=== PATIENT | male | born 1965 | race Hispanic/Latino ===

== ENCOUNTER 2020-02-15 17:52 | Inpatient (IN) | payer MEDICAID ==
[~2020-02-15] VITALS: Ht 160 cm; Wt 47.2 kg
[2020-02-15] MEDS ORDERED: ASPIRIN 325 MG TABLET ONE (18:20)
[2020-02-15 18:22] LABS: BASOPHILS % (AUTO) 1.7 % (0.0-5.0); EOSINOPHILS % (AUTO) 3.8 % (0.0-8.0); HEMATOCRIT 26.7 % (42-54); LYMPHOCYTES % (AUTO) 37.3 % (21.0-51.0); MEAN CORPUSCULAR HEMOGLOBIN 18.2 pg (27.0-33.0); MEAN CORPUSCULAR HGB CONC 27.7 g/dL (32.0-36.0); MEAN CORPUSCULAR VOLUME 65.8 fL (79-99); MONOCYTES % (AUTO) 11.8 % (3.0-13.0); NEUTROPHILS % (AUTO) 44.7 % (40.0-77.0); PLATELET COUNT (AUTO) 160 K/uL (130-400); RED BLOOD CELL COUNT(AUTO) 4.06 MIL/uL (4.50-6.20); RED CELL DISTRIBUTION WIDTH 21.6 % (11.0-15.5); WHITE BLOOD COUNT (AUTO) 7.5 K/uL (4.8-10.8)
[2020-02-15 18:37] LABS: INR 0.92 (0.85-1.15); PARTIAL THROMBOPLASTIN TIME 28.1 SEC (26.3-35.5)
[2020-02-15 18:39] LABS: ALBUMIN 4.1 g/dL (3.5-5.0); BILIRUBIN,TOTAL 0.4 mg/dL (0.2-1.0); CREATININE 0.4 mg/dL (0.5-1.5); TOTAL PROTEIN, SERUM 8.9 g/dL (6.0-8.3)
[2020-02-15] MEDS ORDERED: POTASSIUM CHLORIDE 20 MEQ ERTAB PO ONE (18:57)
[2020-02-15] MEDS ORDERED: MORPHINE SULFATE 2 MG/ML 1ML SYG ONE (20:20)
[2020-02-15] MEDS ORDERED: MORPHINE SULFATE 2 MG/ML 1ML SYG IVP PRN (22:15)
[2020-02-15] MEDS ORDERED: ONDANSETRON HCL 4 MG/2 ML VIAL IV PRN (22:15)
[2020-02-15] MEDS ORDERED: NITROGLYCERIN 0.4 MG SL TAB SL PRN (22:15)
[2020-02-15] MEDS ORDERED: LACTATED RINGERS 1000ML 1,000 ML IV SCH (22:30)
[2020-02-16] VITALS (7 sets, daily range): BP systolic 124–149; BP diastolic 72–81
--- NOTE | 2020-02-16 00:05 | NUR ---
ADMISSION PATIENT ADMITTED INTO ROOM 317 FROM ER, AWAKE, ALERT AND VERBALLY RESPONSIVE. NO C/O CHEST PAIN OR ANY DISTRESS AT THIS TIME. PATIENT ORIENTED TO ROOM, CALL BARRY WITHIN REACH, BED IN LOWEST POSITION, UPDATED ON P.O.C. Addendum: 02/16/20 at 0038 by HAYDER GREGORIO RN Amended: Links added.
[2020-02-16 00:49] LABS: HEMATOCRIT 26.3 % (42-54)
[2020-02-16] MEDS ORDERED: ASPI-556 PO (00:50)
[2020-02-16] MEDS: POTASSIUM CHLORIDE 20MEQ/100ML 100 ML IV PRN ×2 (01:20→10:53)
[2020-02-16] MEDS: LIDOCAINE HCL-MPF 1% 2ML VIAL IV PRN ×2 (01:20→10:53)
[2020-02-16 08:02] LABS: BASOPHILS % (AUTO) 1.1 % (0.0-5.0); EOSINOPHILS % (AUTO) 0.4 % (0.0-8.0); LYMPHOCYTES % (AUTO) 8.5 % (21.0-51.0); MEAN CORPUSCULAR HEMOGLOBIN 18.8 pg (27.0-33.0); MEAN CORPUSCULAR HGB CONC 27.4 g/dL (32.0-36.0); MEAN CORPUSCULAR VOLUME 68.7 fL (79-99); MONOCYTES % (AUTO) 11.3 % (3.0-13.0); PLATELET COUNT (AUTO) 147 K/uL (130-400); RED BLOOD CELL COUNT(AUTO) 3.93 MIL/uL (4.50-6.20); RED CELL DISTRIBUTION WIDTH 21.6 % (11.0-15.5)
[2020-02-16 08:28] LABS: ALANINE AMINOTRANSFERASE 42 U/L (12-78); TROPONIN I < 0.04 ng/mL (0.00-0.06)
[2020-02-16 08:31] LABS: ALBUMIN 3.9 g/dL (3.5-5.0); ASPARTATE AMINOTRANSFERASE 62 U/L (10-37); BILIRUBIN,DIRECT 0.1 mg/dL (0.0-0.3); BILIRUBIN,TOTAL 0.3 mg/dL (0.2-1.0); CHOLESTEROL 139 mg/dL (<200); CREATINE KINASE, TOTAL 64 U/L (21-232); HDL CHOLESTEROL 94 mg/dL (29-71); LDL DIRECT 38 mg/dL (0-99); MYOGLOBIN 16 ng/mL (10-92); THYROID STIMULATING HORMONE 5.67 uIU/mL (0.36-3.74); TOTAL PROTEIN, SERUM 8.5 g/dL (6.0-8.3); TRIGLYCERIDES 27 mg/dL (30-200)
[2020-02-16] MEDS ORDERED: PANTOPRAZOLE 40 MG/VIAL IVP SCH (09:00)
[2020-02-16] MEDS: MAGNESIUM 2GM PREMIX 50ML 50 ML IV PRN (09:31)
[2020-02-16] MEDS ORDERED: PHARMACY COMMUNICATION MISC PRN (11:00)
[2020-02-16] MEDS ORDERED: CHLORDIAZEPOXIDE HCL 25 MG CAP PO PRN (11:00)
[2020-02-16 13:00] LABS: % IRON SATURATION 7.3 % (30-44)
[2020-02-16] MEDS: THIAMINE HCL 100 MG, FOLIC ACID 1 MG, M.V.I. IV [ADULT] 10 ML in SODIUM CHLORIDE 0.9% 1... IV SCH (13:30)
--- NOTE | 2020-02-16 14:48 | NUR ---
MET W PATIENT FOR DC PLANNING PATIENT LIVES ALONE, INDPENDENT IN ADLS, USES A CANE AT TIMES DUE TO WEAKNESS, HAS NO OTHER DME INCLUDING NO SHOWER CHAIR/BENCH- NO STAIRS AT HOME, HOME SAFE AND ACCESSIBLE; HAS PROVIDER SERVICES 21 HRS/WEEK BY A COUSIN WHO ALSO CAN PROVIDE TRANSPORT. HAS BEEN DISABLED X 8 YEARS SECOND TO SEIZURES, FINALLY GOT MEDICAID/ [employer] BENEFITS-- ADMITS THAT HE KNOWS THAT THIS HOSPITAL IS OUT OF NETWORK WITH HIS INSURANCE. DCP IS HOME, CM TO FOLLOW Addendum: 02/16/20 at 1455 by ZENA SCHULTZ RN CM Amended: Links added.
[2020-02-16] MEDS ORDERED: LACTULOSE 20 GM/30 ML UDCUP PO PRN (17:30)
[2020-02-16 18:42] LABS: RETICULOCYTE % (AUTO) 1.53 % (0.42-2.23)
[2020-02-16 18:43] LABS: HEMATOCRIT 27.8 % (42-54)
[2020-02-16 21:49] LABS: ALANINE AMINOTRANSFERASE 34 U/L (12-78); ASPARTATE AMINOTRANSFERASE 54 U/L (10-37); BILIRUBIN,DIRECT 0.3 mg/dL (0.0-0.3); BILIRUBIN,TOTAL 0.7 mg/dL (0.2-1.0); LACTATE DEHYDROGENASE 132 U/L (81-234); TOTAL PROTEIN, SERUM 8.7 g/dL (6.0-8.3)
[2020-02-16] MEDS: LACTULOSE 20 GM/30 ML UDCUP PO SCH (21:58)
[2020-02-16] MEDS ORDERED: POTASSIUM CHLORIDE 20 MEQ ERTAB PO ONE (23:18)
[2020-02-16] MEDS ORDERED: ENOXAPARIN SODIUM 30 MG/0.3 ML SQ ONE (23:19)
[2020-02-17] MEDS: POTASSIUM CHLORIDE 20 MEQ ERTAB PO PRN (01:14)
[2020-02-17 03:44] VITALS: BP 135/80
[2020-02-17 06:23] LABS: BASOPHILS % (AUTO) 1.4 % (0.0-5.0); EOSINOPHILS % (AUTO) 1.9 % (0.0-8.0); HEMATOCRIT 25.8 % (42-54); LYMPHOCYTES % (AUTO) 19.2 % (21.0-51.0); MEAN CORPUSCULAR HEMOGLOBIN 18.7 pg (27.0-33.0); MEAN CORPUSCULAR HGB CONC 27.1 g/dL (32.0-36.0); MEAN CORPUSCULAR VOLUME 68.8 fL (79-99); MONOCYTES % (AUTO) 12.6 % (3.0-13.0); NEUTROPHILS % (AUTO) 64.6 % (40.0-77.0); PLATELET COUNT (AUTO) 140 K/uL (130-400); RED BLOOD CELL COUNT(AUTO) 3.75 MIL/uL (4.50-6.20); RED CELL DISTRIBUTION WIDTH 21.9 % (11.0-15.5); WHITE BLOOD COUNT (AUTO) 7.2 K/uL (4.8-10.8)
[2020-02-17 07:58] VITALS: BP 120/71
[2020-02-17] MEDS ORDERED: PANTOPRAZOLE 40 MG/VIAL IVP SCH (09:00)
[2020-02-17] MEDS ORDERED: ENOXAPARIN SODIUM 30 MG/0.3 ML SQ SCH (09:00)
[2020-02-17] MEDS ORDERED: ACETAMINOPHEN 325 MG TAB ONE (10:20)
[2020-02-17] MEDS: PANTOPRAZOLE SODIUM 40 MG TABLET.DR PO SCH ×2 (10:27→17:31)
[2020-02-17] MEDS: LACTULOSE 20 GM/30 ML UDCUP PO SCH ×2 (10:28→20:09)
[2020-02-17] MEDS ORDERED: ACETAMINOPHEN 325 MG TAB PO SCH (10:30)
[2020-02-17 12:00] VITALS: BP 128/68
[2020-02-17] MEDS ORDERED: COMPOUND IV MISC 1 EACH IVSOLN MISC PRN (12:30)
[2020-02-17] MEDS: THIAMINE HCL 100 MG, FOLIC ACID 1 MG, M.V.I. IV [ADULT] 10 ML in SODIUM CHLORIDE 0.9% 1... IV SCH (13:35)
[2020-02-17 16:00] VITALS: BP 135/72
[2020-02-17] MEDS ORDERED: SODIUM CHLORIDE 3% FOR INHALATION 4 ML/AMP VIAL.NEB IH ONE (18:09)
[2020-02-17 20:08] VITALS: BP 147/71
[2020-02-17] MEDS: IRON SUCROSE COMPLEX 100 MG in SODIUM CHLORIDE 0.9% 50 ML IV SCH (20:09)
[2020-02-18 00:08] VITALS: BP 146/76
[2020-02-18 04:32] VITALS: BP 144/77
[2020-02-18] MEDS: PANTOPRAZOLE SODIUM 40 MG TABLET.DR PO SCH ×2 (05:13→17:08)
[2020-02-18 06:03] LABS: HEMATOCRIT 28.6 % (42-54); MEAN CORPUSCULAR HEMOGLOBIN 20.3 pg (27.0-33.0); MEAN CORPUSCULAR HGB CONC 28.3 g/dL (32.0-36.0); MEAN CORPUSCULAR VOLUME 71.7 fL (79-99); PLATELET COUNT (AUTO) 138 K/uL (130-400); RED BLOOD CELL COUNT(AUTO) 3.99 MIL/uL (4.50-6.20); RED CELL DISTRIBUTION WIDTH 22.1 % (11.0-15.5); WHITE BLOOD COUNT (AUTO) 6.7 K/uL (4.8-10.8)
[2020-02-18] MEDS ORDERED: SODIUM CHLORIDE 3% FOR INHALATION 4 ML/AMP VIAL.NEB IH ONE ×3 (06:14→18:37)
[2020-02-18 06:31] LABS: ALBUMIN 3.3 g/dL (3.5-5.0); BILIRUBIN,TOTAL 0.7 mg/dL (0.2-1.0); CREATININE 0.4 mg/dL (0.5-1.5); MAGNESIUM 1.5 mg/dL (1.80-2.40); POTASSIUM 3.3 mmol/L (3.5-5.1); TOTAL PROTEIN, SERUM 7.5 g/dL (6.0-8.3)
[2020-02-18] MEDS: LIDOCAINE HCL-MPF 1% 2ML VIAL IV PRN ×2 (07:15→11:28)
[2020-02-18] MEDS: POTASSIUM CHLORIDE 20MEQ/100ML 100 ML IV PRN ×2 (07:15→11:28)
[2020-02-18 07:29] LABS: BASOPHILS % (MANUAL) 1 % (0-2); EOSINOPHILS % (MANUAL) 3 % (1-6); LYMPHOCYTES % (MANUAL) 19 % (22-44); MAN.DIFF COMMENT-IMPRESSION MANUAL DIFFERENTIAL; MONOCYTES % (MANUAL) 6 % (2-9); SEGMENTED NEUTROPHILS % 71 % (40-70)
[2020-02-18 07:30] LABS: PLATELET MORPHOLOGY COMMENT ADEQUATE
[2020-02-18 08:46] VITALS: BP 142/74
[2020-02-18] MEDS: LACTULOSE 20 GM/30 ML UDCUP PO SCH ×3 (09:09→21:41)
[2020-02-18] MEDS: IRON SUCROSE COMPLEX 100 MG in SODIUM CHLORIDE 0.9% 50 ML IV SCH (09:10)
[2020-02-18] MEDS: THIAMINE HCL 100 MG, FOLIC ACID 1 MG, M.V.I. IV [ADULT] 10 ML in SODIUM CHLORIDE 0.9% 1... IV SCH (11:23)
[2020-02-18 11:42] VITALS: BP 133/80
[2020-02-18] MEDS: ZOSYN 3.375GM+NS 50ML 50 ML IV SCH ×2 (14:40→21:41)
[2020-02-18 16:28] VITALS: BP 157/83
[2020-02-18 21:57] VITALS: BP 147/50
[2020-02-19 00:01] VITALS: BP 131/59
[2020-02-19] MEDS: MAGNESIUM 2GM PREMIX 50ML 50 ML IV PRN (00:14)
[2020-02-19 03:56] VITALS: BP 136/70
[2020-02-19] MEDS: ZOSYN 3.375GM+NS 50ML 50 ML IV SCH ×2 (05:15→13:50)
[2020-02-19 06:03] LABS: MAGNESIUM 2.1 mg/dL (1.80-2.40)
[2020-02-19] MEDS: POTASSIUM CHLORIDE 20 MEQ ERTAB PO PRN ×3 (06:39→16:10)
[2020-02-19] MEDS: PANTOPRAZOLE SODIUM 40 MG TABLET.DR PO SCH ×2 (06:39→16:10)
[2020-02-19 08:32] VITALS: BP 148/74
[2020-02-19] MEDS: LACTULOSE 20 GM/30 ML UDCUP PO SCH ×2 (08:46→19:54)
[2020-02-19] MEDS: IRON SUCROSE COMPLEX 100 MG in SODIUM CHLORIDE 0.9% 50 ML IV SCH (08:46)
[2020-02-19 11:37] VITALS: BP 131/58
[2020-02-19] MEDS: LIDOCAINE HCL-MPF 1% 2ML VIAL IV PRN (13:50)
[2020-02-19] MEDS: POTASSIUM CHLORIDE 20MEQ/100ML 100 ML IV PRN (13:57)
[2020-02-19 16:46] VITALS: BP 131/69
[2020-02-19 19:51] VITALS: BP 141/70
--- NOTE | 2020-02-19 20:08 | NUR ---
spoke with patient about possible bleeding, infection, or at home. he is aware. spoke with daughter dede carroll and she is aware of her father's wishes to leave. spoke with kael mary to let him know. patient signed AMA paper and left. he claims that his friend will come pick him up. he pulled out his IV catheter himself. placed gauze and tape on it.
== END 2020-02-19 20:13 | disposition left against medical advice (07) | DRG 139 ==
LOC: EDH 17:52 → EDHIP 17:53 → 3CH 23:25
PROVIDERS: ADMIT Internal Medicine; ATTEND Internal Medicine
PROC: 30233N1 Transfusion of Nonautologous Red Blood Cells into Peripheral Vein, Percutaneous Approach (ICD-10-PCS; principal; 2020-02-17)
DX: J18.9 Pneumonia, unspecified organism (principal); C95.90 Leukemia, unspecified not having achieved remission; K76.6 Portal hypertension; J44.0 Chronic obstructive pulmonary disease with (acute) lower respiratory infection; D50.0 Iron deficiency anemia secondary to blood loss (chronic); F10.10 Alcohol abuse, uncomplicated; I11.9 Hypertensive heart disease without heart failure; A15.0 Tuberculosis of lung; E86.0 Dehydration; E87.6 Hypokalemia; R07.89 Other chest pain; F17.210 Nicotine dependence, cigarettes, uncomplicated; G40.909 Epilepsy, unspecified, not intractable, without status epilepticus; K70.30 Alcoholic cirrhosis of liver without ascites; K76.0 Fatty (change of) liver, not elsewhere classified; Z86.11 Personal history of tuberculosis; Z91.19 Patient's noncompliance with other medical treatment and regimen; Z53.29 Procedure and treatment not carried out because of patient's decision for other reasons
CPT/HCPCS: 36415; 36430; 71045; 71250; 74176; 80053; 80061; 80076; 82140; 82270; 82550; 82607; 82728; 82746; 83010; 83540; 83550; 83615; 83690; 83735; 83874; 83880; 84132; 84145; 84443; 84484; 85014; 85018; 85025; 85045; 85378; 85610; 85730; 86850; 86900; 86901; 86922; 87071; 87116; 87205; 87206; 93005; 93306; 93356; 94640; C9113; G0378; J1650; J1756; J2543; J3411; J3475; J3480; J3490; J7030; J7120; P9016